=== PATIENT | male | born 1945 | race American Indian/Alaskan Native ===

== ENCOUNTER 2016-06-16 13:54 | Outpatient (CLI) | payer MEDICARE ==
--- NOTE | 2016-06-20 09:39 | PET Report ---
PET/CT:06/16/16 13:54:00 CLINICAL: Renal cell cancer restaging. RADIOPHARMACEUTICAL: 13.2mCi F18-FDG. COMPARISON: 01/14/16 PET/CT TECHNIQUE- Following intravenous injection of F-18 FDG and an approximately 60 minute uptake period, CT and PET images from the mid skull to the upper thighs were acquired with the patient in the fasted state. No contrast was administered. The CT protocol used for this PET CT study is designed for attenuation correction and anatomic localization of PET abnormalities. This director sterile processing CT is not desired to produce and cannot replace, jskkz-fa-wks-art diagnostic CT scans with specific imaging protocols for different body parts and indications. Plasma glucose at the time of this test: 123g/dl. The standardized uptake values (SUV) are normalized to patient body weight and indicate the highest activity concentration (SUV max) in a given disease site. FINDINGS: Brain--Physiologic FDG uptake in the visualized regions of the brain. Neck--Physiologic FDG uptake . Chest--Physiologic FDG uptake in mediastinal blood pool and myocardium. Lungs--No abnormal uptake. No pulmonary nodule or mass. Pleura/pericardium--No abnormal uptake. Thoracic nodes--No abnormal uptake. Stable bilateral axillary lymphadenopathy. Hepatobiliary--Stable hepatic hypodensities with including a 13 cm geographic hypodensity involving the upper portion of the right lobe of the liver. However, no abnormal uptake. Liver background SUV mean, as a reference for comparing FDG studies, is 2.7 compared to 2.8 on the last exam. Spleen--No abnormal uptake. Pancreas--No abnormal uptake. Adrenal Glands--No abnormal uptake. Kidneys/Ureters/Bladder--Bilateral FDG avid and non-FDG avid solid renal masses as seen previously. The largest on the right measures 7.7 x 5.3 with SUV 10.0 compared to 7.6 x 5.3 cm and SUV 9.8 on the last exam. Exophytic right upper pole mass measures 4.1 x 3.3 cm with SUV 3.2 compared to 3.9 x 3.2 cm with SUV 5.4. The largest left renal mass measures 4.2 x 3.1 cm with SUV 3.0 compared to 4.6 x 3.5 cm and SUV 3.4. Abdominopelvic Nodes--No abnormal uptake. Stable retroperitoneal and bilateral iliac lymph nodes. Bowel/Peritoneum/Mesentery--No abnormal uptake. Pelvic organs--No abnormal uptake. Bones/Soft Tissues--No abnormal uptake. A 4 mm lucency of the T9 vertebral body is unchanged compared to the previous exam and is of questionable significance. IMPRESSION- Stable disease with no new findings.Stable bilateral renal masses and stable hepatic masses. Stable bilateral axillary and abdominal retroperitoneal lymphadenopathy.
== END 2016-06-16 13:55 | disposition home or self-care (01) ==
LOC: PET 13:54
PROVIDERS: ATTEND Internal Medicine Hematology & Oncology
DX: C64.2 Malignant neoplasm of left kidney, except renal pelvis (principal); I10 Essential (primary) hypertension
CPT/HCPCS: 78815; 82962; A9552

== ENCOUNTER 2017-01-05 10:18 | Outpatient (CLI) | payer MEDICARE ==
--- NOTE | 2017-01-07 11:38 | PET Report ---
PET/CT:01/05/17 10:18:00 CLINICAL: Renal cancer restaging. RADIOPHARMACEUTICAL: 14.73mCi F18-FDG. COMPARISON: 06/16/16 and 01/14/16 PET/CT TECHNIQUE- Following intravenous injection of F-18 FDG and an approximately 60 minute uptake period, CT and PET images from the mid skull to the upper thighs were acquired with the patient in the fasted state. No contrast was administered. The CT protocol used for this PET CT study is designed for attenuation correction and anatomic localization of PET abnormalities. This tenter CT is not desired to produce and cannot replace, enbsy-yd-qdc-art diagnostic CT scans with specific imaging protocols for different body parts and indications. Plasma glucose at the time of this test: 98g/dl. The standardized uptake values (SUV) are normalized to patient body weight and indicate the highest activity concentration (SUV max) in a given disease site. FINDINGS: Brain--Physiologic FDG uptake in the visualized regions of the brain. Neck--Physiologic FDG uptake . Chest--Physiologic FDG uptake in mediastinal blood pool and myocardium. Lungs--No abnormal uptake. No pulmonary nodule or mass. Pleura/pericardium--No abnormal uptake. Thoracic nodes--Slightly increased bilateral axillary lymphadenopathy. The largest lymph node on the left measures 2.3 x 1.8 cm there are 21.9 x 1.6 cm with SUV 2.8 compared to 2.2. A new FDG avid right inferior axillary lymph node measures 2.1 x 1.2 cm with SUV 3.8. Hepatobiliary--No abnormal uptake. Stable hepatic hypodensities which include a 13 cm geographic hypodensity involving the upper portion of the right lobe. Liver background SUV mean, as a reference for comparing FDG studies, is 2.9 compared to 2.6 on the last exam. The right lobe measures 22 cm in length. Spleen--Small with no abnormal uptake. Pancreas--No abnormal uptake. Adrenal Glands--No abnormal uptake. Kidneys/Ureters/Bladder--Bilateral FDG avid and non-FDG evident solid renal masses are not significantly changed in size. The largest on the right measures 7.1 cm with a CV 9.7 compared to 10.0 on the last exam. Abdominopelvic Nodes--Stable retroperitoneal lymphadenopathy with no abnormal uptake. A new FDG avid left inguinal lymph node measures 1.5 x 1.6 cm with SUV 3.5. Bowel/Peritoneum/Mesentery--No abnormal uptake. Pelvic organs--No abnormal uptake. Bones/Soft Tissues--No abnormal uptake. No suspicious bone lesions. Stable 4 mm lucency of the T9 vertebral body which is probably benign. IMPRESSION- 1. Stable disease except for increased bilateral axillary lymph node adenopathy with a new FDG avid right axillary lymph node and a new FDG avid left inguinal lymph node. 2. Stable non-FDG avid hepatic masses and FDG avid and non-FDG avid renal masses.3. Stable non-FDG avid retroperitoneal lymphadenopathy.
== END 2017-01-05 10:19 | disposition home or self-care (01) ==
LOC: PET 10:18
PROVIDERS: ATTEND Internal Medicine Hematology & Oncology
DX: C64.2 Malignant neoplasm of left kidney, except renal pelvis (principal); R59.1 Generalized enlarged lymph nodes; N28.89 Other specified disorders of kidney and ureter; K76.89 Other specified diseases of liver; I10 Essential (primary) hypertension
CPT/HCPCS: 78815; 82962; A9552

== ENCOUNTER 2017-03-30 14:03 | Outpatient (CLI) | payer MEDICARE ==
--- NOTE | 2017-03-31 13:15 | PET Report ---
PET SB TO MT SUBSEQUENT: HISTORY: Renal cell cancer. TECHNIQUE: 13.4 millicuries F-18 FDG was administered intravenously. Noncontrast CT images and PET images were obtained from the skull base to the proximal thighs. Fused images were reviewed on a workstation. The patient's blood glucose level measured 90. COMPARISON: 01/05/17. FINDINGS: BRAIN: physiologic FDG uptake in the imaged brain. NECK: Multiple, bilateral mildly enlarged lymph nodes in both posterior cervical triangles appear stable in size and number. Right cervical lymph nodes demonstrate an increased SUV from approximately 2.4 to 3.2. Left cervical lymph nodes also demonstrate increased metabolic activity with SUV increasing from 2.3 to 2.9.. MEDIASTINUM: Scattered small lymph nodes in the superior mediastinum are stable in size and number.. LUNGS: physiologic FDG uptake. PLEURA/PERICARDIUM: physiologic FDG uptake. THORACIC LYMPH NODES: Bilateral axillary lymph nodes appear stable in number but slightly increased in size it an estimated 10-20%. Right axillary lymph nodes demonstrated increased SUV from 2.4 to 5.7. Left axillary lymph nodes demonstrate an increased SUV from 2.8 to 4.5. HEPATOBILIARY: Multiple hepatic hypodensities are stable in size and number. The largest lesion measures up to 13 cm in the superior right hepatic lobe. These remain relatively hypometabolic or isometabolic to liver tissue. No hypermetabolic liver lesions have developed. Mean liver SUV measures 3.0 as compared to 3.2 on the previous exam. PANCREAS: physiologic FDG uptake. SPLEEN: physiologic FDG uptake. ADRENAL GLANDS: physiologic FDG uptake. KIDNEYS/RENAL COLLECTING SYSTEMS: Bilateral abdomen and non-evident renal masses appear stable in size and number. The largest mass in the posterior right kidney measures 7.5 x 4.9 cm and demonstrates a max SUV of 11.0. The largest lesion in the left kidney measures 3.9 x 2.7 cm and demonstrates a max SUV of 3.8. BOWEL/MESENTERY: physiologic FDG uptake. PELVIC VISCERA: physiologic FDG uptake. ABDOMINAL/PELVIC LYMPH NODES: Bilateral iliac and inguinal lymph nodes appear stable in size and number. Uptake in right iliac lymph nodes has increased from 4.2 to 4.6. Uptake in left iliac lymph nodes has increased from 3.3 to 4.8. Multiple small retroperitoneal lymph nodes remain hypometabolic and appear stable in size and number. MUSCULOSKELETAL: physiologic FDG uptake. IMPRESSION: Mild progression of disease is suspected since 01/05/17. There is mild increased metabolic activity in multiple lymph node groups as outlined above. Lateral renal masses and hepatic hypodensities are stable. No new areas of disease are appreciated.
== END 2017-03-30 14:04 | disposition home or self-care (01) ==
LOC: PET 14:03
PROVIDERS: ATTEND Internal Medicine Hematology & Oncology
DX: C64.2 Malignant neoplasm of left kidney, except renal pelvis (principal); C91.10 Chronic lymphocytic leukemia of B-cell type not having achieved remission; R59.9 Enlarged lymph nodes, unspecified; K76.89 Other specified diseases of liver; N28.89 Other specified disorders of kidney and ureter; I10 Essential (primary) hypertension; Z79.899 Other long term (current) drug therapy
CPT/HCPCS: 78815; 82962; A9552

== ENCOUNTER 2017-08-10 06:57 | Outpatient (CLI) | payer MEDICARE ==
--- NOTE | 2017-08-11 09:56 | PET Report ---
PET/CT:08/10/17 06:57:00 CLINICAL: Renal cancer restaging. RADIOPHARMACEUTICAL: 11.6mCi F18-FDG. COMPARISON: 03/30/17 PET/CT TECHNIQUE- Following intravenous injection of F-18 FDG and an approximately 60 minute uptake period, CT and PET images from the mid skull to the upper thighs were acquired with the patient in the fasted state. No contrast was administered. The CT protocol used for this PET CT study is designed for attenuation correction and anatomic localization of PET abnormalities. This mortar maker CT is not desired to produce and cannot replace, dauvl-wp-qin-art diagnostic CT scans with specific imaging protocols for different body parts and indications. Plasma glucose at the time of this test: 91g/dl. The standardized uptake values (SUV) are normalized to patient body weight and indicate the highest activity concentration (SUV max) in a given disease site. FINDINGS: Brain--Physiologic FDG uptake in the visualized regions of the brain. Neck--Physiologic FDG uptake in mucosal structures. Stable bilateral jugular lymphadenopathy with FDG uptake and SUV 3.5 compared to 3.2. Chest--Physiologic FDG uptake in mediastinal blood pool and myocardium. Lungs--No abnormal uptake. A few tiny non-FDG avid noncalcified right upper lobe and right middle lobe lung nodules with the largest measuring 4 mm. The largest are identified in retrospect on the our exam but are more prominent on this exam. Pleura/pericardium--No abnormal uptake. Thoracic nodes--Increased size of mildly FDG avid bilateral axillary lymph nodes. The largest is on the right and measures 4.5 x 2.7 cm with SUV 2.4 compared to 2.5 x 1.0 cm and SUV 2.1 on the last exam. Hepatobiliary--Stable right and left hepatic hypodense masses but no abnormal uptake. Liver background SUV mean, as a reference for comparing FDG studies, is 2.5 compared to 2.8 on the last exam. Spleen--No abnormal uptake. Pancreas--No abnormal uptake. Adrenal Glands--No abnormal uptake. Kidneys/Ureters/Bladder--Bilateral FDG avid renal masses are slightly smaller with decrease SUV uptake. The largest is on the right and measures 8.1 x 5.0 cm with SUV 8.5 compared to 7.5 x 4.9 cm and SUV 11.0 on last exam. The largest left renal mass measures 3.5 x 3.1 cm with SUV 3.6 compared to 3.9 x 2.7 cm and SUV of 3.8 on the last exam. Abdominopelvic Nodes--Stable retroperitoneal lymphadenopathy with minimal FDG uptake. Bilateral external and internal iliac lymphadenopathy with stable size lymph nodes but decreased FDG uptake with SUV 3.7 on the right compared to 3.9 on the last exam. Bowel/Peritoneum/Mesentery--No abnormal uptake. Pelvic organs--No abnormal uptake. Bones/Soft Tissues--No abnormal uptake. No suspicious bone lesions. IMPRESSION- A mixed picture with stable or slightly improved disease in the neck, abdomen and pelvis but larger bilateral axillary lymph nodes. However, no SUV values are increased significantly compared to the last exam. A few non-FDG tiny right lung nodules are of uncertain significance but are more prominent on this exam than on previous exams.
== END 2017-08-10 06:58 | disposition home or self-care (01) ==
LOC: PET 06:57
PROVIDERS: ATTEND Internal Medicine Hematology & Oncology
DX: C64.2 Malignant neoplasm of left kidney, except renal pelvis (principal); C91.10 Chronic lymphocytic leukemia of B-cell type not having achieved remission; R59.9 Enlarged lymph nodes, unspecified; R91.8 Other nonspecific abnormal finding of lung field; N28.89 Other specified disorders of kidney and ureter; F51.01 Primary insomnia; F17.200 Nicotine dependence, unspecified, uncomplicated; F12.10 Cannabis abuse, uncomplicated; Z79.899 Other long term (current) drug therapy
CPT/HCPCS: 78815; 82962; A9552